=== PATIENT | male | born 1955 | race Asian ===

== ENCOUNTER 2017-11-15 10:36 | Emergency (ER) | payer MEDICAID, OTHER ==
[~2017-11-15] VITALS: Ht 180.3 cm; Wt 82.0 kg
[2017-11-15] MEDS ORDERED: SODIUM CHLORIDE 0.9% 1,000 ML IV ONE ×2 (11:35→13:05)
[2017-11-15 12:30] LABS: BASOPHILS % 0.3 % (0.0-2.0); EOSINOPHILS % 0.9 % (0.0-5.0); HEMATOCRIT. 40.5 % (42.0-52.0); HEMOGLOBIN. 13.2 g/dL (14.0-18.0); LYMPHOCYTES % 21.6 % (20.0-50.0); MEAN CORPUSCULAR HEMOGLOBIN 26.4 pg (28.0-32.0); MEAN CORPUSCULAR VOLUME 81.4 fL (80.0-94.0); MEAN PLATELET VOLUME 7.7 fl (7.4-10.4); MONOCYTES % 7.1 % (2.0-8.0); NEUTROPHILS % 70.1 % (40.0-76.0); PLATELET 191 x1000/uL (130-400); RED BLOOD CELL COUNT 4.98 mill/uL (4.7-6.1); RED CELL DISTRIBUTION WIDTH 14.2 % (11.6-14.6)
[2017-11-15 12:39] LABS: BETA HYDROXYBUTYRATE 1.3 mMol/L (0.0-0.3); CHLORIDE 99 mEq/L (98-107)
[2017-11-15 15:22] VITALS: BP 143/67
== END 2017-11-15 15:26 | disposition home or self-care (01) ==
LOC: ER 10:58
DX: E11.65 Type 2 diabetes mellitus with hyperglycemia (principal)
CPT/HCPCS: 36415; 71045; 80048; 82010; 82962; 85025; 93005; 96360; 96361; 99285; J7030